=== PATIENT | male | born 1955 | race Caucasian/White ===

== ENCOUNTER → 2019-08-30 | Outpatient (CLI) | payer OTHER ==
--- NOTE | 2019-08-30 10:42 | Diagnostic Imaging Report ---
INDICATION: Previous ACL repair. Patient complains of continued pain. TIME OF EXAM: 10:17 a.m. FINDINGS: Two views of the right knee were obtained. There are postsurgical changes of ACL repair. The alignment is normal. The medial and lateral compartments are well maintained. The articular surfaces are smooth. There are patellofemoral joint degenerative changes with mild spurring along the posterior surface of the patella. There is enthesopathy along the upper pole of the patella. There is a well-corticated osseous density projected within the joint space just lateral to the midline measuring 15 mm x 9 mm. This appears to be anteriorly located on the lateral view. A loose body is suspected. No joint effusion or fracture is seen. IMPRESSION: 1. Postoperative changes of ACL repair. There is a well-corticated osseous density projected within the joint anteriorly and slightly lateral suspicious for a loose body. MRI may be useful for further evaluation. No other significant abnormality is seen. Dictated by: Dictated on workstation # [id number]
== END ==
LOC: RAD 10:02
PROVIDERS: ATTEND Family Medicine
DX: M89.9 Disorder of bone, unspecified (principal); M25.561 Pain in right knee; Z98.890 Other specified postprocedural states
CPT/HCPCS: 73560

== ENCOUNTER → 2022-06-05 | Outpatient (CLI) | payer BC ==
--- NOTE | 2022-06-05 13:17 | Diagnostic Imaging Report ---
PROCEDURE: CT urinary tract, rule out kidney stone. TECHNIQUE: Multiple contiguous axial images were obtained through the abdomen and pelvis without the use of intravenous contrast. Auto Exposure Controls were utilized during the CT exam to meet ALARA standards for radiation dose reduction. INDICATION: Right flank pain. No prior studies are available for comparison. FINDINGS: The lung bases are clear. The liver and gallbladder are unremarkable. There is no biliary ductal dilatation. Pancreas and spleen are unremarkable. No adrenal mass is identified. No renal or ureteral calculi are seen. There is no hydronephrosis. Bladder is decompressed, but no bladder calculi are detected. The aorta is nonaneurysmal. Bowel loops are normal in caliber. No inflammatory changes are seen. There is no free fluid or fluid collection. Prostate is unremarkable. Bony structures are nonacute. IMPRESSION: Unremarkable noncontrast CT of the abdomen and pelvis. No urinary tract calculi or obstruction is identified. Dictated by: Dictated on workstation # [id number]
== END ==
LOC: RAD FS 12:04
PROVIDERS: ATTEND Family Medicine
DX: R30.9 Painful micturition, unspecified (principal); R10.9 Unspecified abdominal pain
CPT/HCPCS: 74176